=== PATIENT | female | born 1960 | race Caucasian/White ===

== ENCOUNTER 2016-10-22 07:11 | Day surgery (SDC) | payer MEDICARE ==
--- NOTE | ~2016-10-22 | EGD ---
EGD REPORT [facility] [address] [id number] NAME: ELLEN CHAMPION : 58 STATUS : REG [facility] PAT#: [id number] AGE: 56 ADM/REG DATE : 10/22/16 MR#: [id number] REPORT SERV DATE: 10/22/16 DICTATED BY: SHAWN BLACK DATE: 10/22/16 REPORT STATUS : Draft TRANSCRIBED BY: [employer] DATE: 10/22/16 [facility] Center Patient Name: Ellen Champion Date of : 1960 Attending MD: SHAWN BLACK MD Procedure Date No Time: 10/22/2016 Procedure: Colonoscopy Indications: Abdominal pain in the right lower quadrant, Personal history of malignant neoplasm of the colon, Abnormal small bowel series Referring MD: HARMONY MONSIVAIS Medicines: as per anesthesia Complications: No immediate complications. Procedure: Pre-Anesthesia Assessment: - ASA Grade Assessment: II - A patient with mild systemic disease. After I obtained informed consent, the scope was passed under direct vision. Throughout the procedure, the patient's blood pressure, pulse, and oxygen saturations were monitored continuously. The [facility] [id number] was introduced through the anus and advanced to the cecum, identified by appendiceal orifice and ileocecal valve. The colonoscopy was performed without difficulty. The patient tolerated the procedure. The quality of the bowel preparation was fair. Findings: The perianal and digital rectal examinations were normal. There was evidence of a prior end-to-end colo-colonic anastomosis in the transverse colon. This was patent. This was characterized by healthy appearing mucosa. This was traversed. A sessile polyp was found in the sigmoid colon. The polyp was 4 mm in size. The polyp was removed with a jumbo cold forceps. Resection and retrieval were complete. Internal hemorrhoids were found during endoscopy and were mild. Impression: - Patent end-to-end colo-colonic anastomosis. - One 4 mm polyp in the sigmoid colon. Resected and retrieved. - Internal hemorrhoids. Recommendation: - Await pathology results. - Repeat colonoscopy for surveillance based on pathology results. EGD REPORT [address] [address] NAME: ELLEN CHAMPION : [birth year] STATUS : REG [facility]#: [id number] AGE: 56 ADM/REG DATE : 10/22/16 MR#: [id number] REPORT SERV DATE: 10/22/16 DICTATED BY: SHAWN BLACK. DATE: 10/22/16 REPORT STATUS : Draft TRANSCRIBED BY: [employer] DATE: 10/22/16 Procedure Code(s): --- Professional --- 45756, Colonoscopy, flexible, proximal to splenic flexure; with biopsy, single or multiple Diagnosis Code(s): --- Professional --- Z98.0, Intestinal bypass and anastomosis status D12.5, Benign neoplasm of sigmoid colon K64.8, Other hemorrhoids R10.31, Right lower quadrant pain Z85.038, Personal history of other malignant neoplasm of large intestine R93.3, Abnormal findings on diagnostic imaging of other parts of digestive tract CPT copyright 2013 [employer]. All rights reserved. The codes documented in this report are preliminary and upon aeronautics commission director review may be revised to meet current compliance requirements. SHAWN BLACK MD 10/22/2016 9:38 AM This report has been signed electronically. Number of Addenda: 0 Note Initiated On: 10/22/2016 9:01 AM Scope Withdrawal Time 0 hours 8 minutes 13 seconds [id number] [place] [id number]
== END 2016-10-22 23:59 | disposition home or self-care (01) ==
LOC: DMU 07:11
PROVIDERS: Internal Medicine Gastroenterology
PROC: 0DBN8ZZ Excision of Sigmoid Colon, Via Natural or Artificial Opening Endoscopic (ICD-10-PCS; principal; 2016-10-22 08:30)
DX: D12.5 Benign neoplasm of sigmoid colon (principal); R10.31 Right lower quadrant pain; R93.3 Abnormal findings on diagnostic imaging of other parts of digestive tract; F17.210 Nicotine dependence, cigarettes, uncomplicated; K64.8 Other hemorrhoids; Z98.0 Intestinal bypass and anastomosis status; Z85.038 Personal history of other malignant neoplasm of large intestine; Z88.5 Allergy status to narcotic agent; Z88.8 Allergy status to other drugs, medicaments and biological substances
CPT/HCPCS: 88305